=== PATIENT | female | born 1990 | race Caucasian/White ===

== ENCOUNTER 2017-01-28 09:24 | Outpatient (CLI) ==
[2014-06-16 16:03] VITALS: BMI 20.9
[2017-01-28 09:56] LABS: GLUCOSE,FASTING 84 mg/dL (70-121)
[2017-01-28 10:00] LABS: GTT FASTING URINE NEGATIVE (NEGATIVE)
[2017-01-28 10:24] LABS: GLUCOSE 30 MINUTE URINE NEGATIVE (NEGATIVE)
[2017-01-28 10:52] LABS: GLUCOSE 30 MINUTE 136 mg/dL (70-121)
[2017-01-28 12:07] LABS: GLUCOSE 2 HR URINE TRACE (NEGATIVE)
[2017-01-28 13:31] LABS: GLUCOSE 3 HOUR URINE NEGATIVE (NEGATIVE)
== END 2017-01-28 09:25 | disposition home or self-care (01) ==
LOC: LAB 09:24
PROVIDERS: ATTEND Advanced Practice Midwife
DX: O99.810 Abnormal glucose complicating pregnancy (principal)
CPT/HCPCS: 36415; 82951